=== PATIENT | female | born 1960 | race Caucasian/White ===

== ENCOUNTER 2020-03-11 09:19 | Emergency (ER) | payer OTHER ==
[~2020-03-11 09:19] MED LIST: ATENOLOL25 M1 PO; ATORVASTATIN CA20 MG PO; CLARITIN10 MG PO; CLOPIDOGREL75 MG PO; DUONEB 2.5-0.5M1 AMP INH; FLEXERIL10 MG PO; INCRUSE ELLI62.5 MCG PO; LEVAQUIN750 MG PO; PREDNISONE50 MG PO; ROBAXIN500 MG PO; VENTOLIN HFA IN18 GM INH; VIBRAMYCIN100 MG PO; ZOFRAN4 MG PO
== END 2020-03-11 09:55 | disposition home or self-care (01) ==
LOC: FER 09:19
DX: T81.31XA Disruption of external operation (surgical) wound, not elsewhere classified, initial encounter (principal); I51.9 Heart disease, unspecified; Z79.82 Long term (current) use of aspirin; Y83.2 Surgical operation with anastomosis, bypass or graft as the cause of abnormal reaction of the patient, or of later complication, without mention of misadventure at the time of the procedure; Z87.891 Personal history of nicotine dependence
CPT/HCPCS: 99282

== ENCOUNTER 2020-08-16 13:23 | Emergency (ER) | payer OTHER ==
[2020-08-16] MEDS ORDERED: MEDROL 4MG DOSEP4 MG PO (19:15)
[2020-08-16] MEDS ORDERED: CYCLOBENZAPRINE10 MG PO (19:15)
== END 2020-08-16 19:31 | disposition home or self-care (01) ==
LOC: FER 13:23
DX: M25.562 Pain in left knee (principal); J44.9 Chronic obstructive pulmonary disease, unspecified; I51.9 Heart disease, unspecified; Z88.2 Allergy status to sulfonamides; Z88.6 Allergy status to analgesic agent; Z88.8 Allergy status to other drugs, medicaments and biological substances; Z79.02 Long term (current) use of antithrombotics/antiplatelets; Z79.899 Other long term (current) drug therapy
CPT/HCPCS: 73564; 93971